=== PATIENT | female | born 1960 | race Caucasian/White ===

== ENCOUNTER 2017-05-18 09:21 | Outpatient (CLI) | payer OTHER ==
[~2017-05-18 09:21] MED LIST: ALBUTEROL SULFATE 2.5 MG/0.5 ML AMPUL.NEB NEB ONE
[2017-05-18 09:28] VITALS: BP 154/55
== END 2017-05-18 09:22 ==
LOC: RT 09:21
PROVIDERS: ATTEND Physician Assistant
DX: G47.33 Obstructive sleep apnea (adult) (pediatric) (principal)
CPT/HCPCS: 94060